=== PATIENT | male | born 1970 | race Caucasian/White ===

== ENCOUNTER 2025-09-09 12:29 | Emergency (ER) | payer MEDICARE, MEDICAID ==
[~2025-09-09] VITALS: Ht 177.8 cm; Wt 79.4 kg
[2025-09-09] MEDS ORDERED: ACETAMINOPHEN ES 500 MG TABLET ONE (12:42)
[2025-09-09 12:58] LABS: PLATELET COUNT (AUTO) 170 K/uL (150-450); RED BLOOD CELL COUNT(AUTO) 4.62 MIL/uL (4.5-6.0); RED CELL DISTRIBUTION WIDTH 13.5 % (11.5-15.0); WHITE BLOOD COUNT (AUTO) 5.4 K/uL (4.3-11.0)
[2025-09-09] MEDS: IV NS 0.9% 1,000 ML BAG IV ONE (13:07)
[2025-09-09] MEDS: ACETAMINOPHEN ES 500 MG TABLET PO ONE (13:08)
[2025-09-09 13:11] LABS: CALCIUM, SERUM 9.1 mg/dL (8.5-10.1); CREATININE 0.9 mg/dL (0.6-1.3); SODIUM SERUM 143.0 mmol/L (136-145); UREA NITROGEN, BLOOD 12.0 mg/dL (7-18)
[2025-09-09] MEDS ORDERED: IOHEXOL-300 100 ML VIAL IV ONE (13:57)
[2025-09-09] MEDS ORDERED: IV NS 0.9% 250 ML IV ONE (13:57)
[2025-09-09] MEDS ORDERED: oxyCODONE/APAP (5/325 MG) 1 UDTAB TABLET ONE (15:32)
[2025-09-09] MEDS: oxyCODONE/APAP (5/325 MG) 1 UDTAB TABLET PO ONE (15:35)
[2025-09-09 15:46] VITALS: BP 167/98; TEMP 97.7; O2SAT 98
== END 2025-09-09 15:47 | disposition home or self-care (01) ==
LOC: ER 12:35
DX: S13.4XXA Sprain of ligaments of cervical spine, initial encounter (principal); S20.219A Contusion of unspecified front wall of thorax, initial encounter; S09.90XA Unspecified injury of head, initial encounter; W22.8XXA Striking against or struck by other objects, initial encounter; Y93.89 Activity, other specified; Y92.89 Other specified places as the place of occurrence of the external cause; Y99.8 Other external cause status
CPT/HCPCS: 99285; 72125; 96360; 71260; 70450; 74177; 85025; 80048; 36415; J7030; J7050; Q9967